=== PATIENT | male | born 2000 | race Caucasian/White ===

== ENCOUNTER 2021-09-03 17:09 | Emergency (ER) | payer OTHER, BC ==
[~2021-09-03] VITALS: Ht 183 cm; Wt 128.0 kg
[~2021-09-03 17:09] MED LIST: CYCL10TA25 PO; NAPR-915 PO
[2021-09-03] MEDS ORDERED: ONDANSETRON 4 MG (ZOFRAN) ORAL DISSOLVE TAB SL STA (18:17)
--- NOTE | 2021-09-03 18:23 | ED Head Injury ---
General Chief Complaint: Trauma-Non Activation Stated Complaint: FALL/HIT BACK OF HEAD Source: patient History of Present Illness Date Seen by Provider: Sep 03, 2021 Time Seen by Provider: 18:12 Initial Comments PT ARRIVES VIA POV STATES HE WAS AT WORK TODAY AT [employer], AND SLIPPED AND FELL BACKWARDS AND HIT THE BACK OF HIS HEAD ON THE METAL FRAME OF A GROCERY CART--NEAR THE BOTTOM OF THE CART. OCCURRED AT 1400 TODAY NO LOSS OF CONSCIOUSNESS AROUND 1600, HE BEGAN TO BECOME NAUSEATED, DIZZY, HAVING A GENERALIZED HEADACHE AND INCREASED PAIN IN BACK OF HEAD AT SITE OF INJURY FEELS "DAZED" BACK OF NECK FEELS SORE NO VISION CHANGES NO PARESTHESIAS OR MOTOR DEFICITS NO OTHER INJURIES FROM THE INCIDENT PT HAS NOT TAKEN ANYTHING FOR PAIN PCP: DR. STEINBERG Allergies and Home Medications Allergies Coded Allergies: No Known Allergies (Verified Allergy, Unknown, 09/06/06) Patient Home Medication List Home Medication List Reviewed: Yes Cyclobenzaprine HCl (Cyclobenzaprine HCl) 10 Mg Tablet, 10 MG PO Q8H Prescribed by: HEMAL GANNON on 02/03/16 012 Naproxen (Naproxen) 500 Mg Tablet, 500 MG PO BID Prescribed by: HEMAL GANNON on 02/03/16 012 Ondansetron (Ondansetron Odt) 4 Mg Tab.rapdis, 4 MG PO Q4H Prescribed by: HEMAL GANNON on 09/03/21 190 Review of Systems Review of Systems Constitutional: see HPI, dizziness, malaise Eyes: No Symptoms Reported Ears, Nose, Mouth, Throat: no symptoms reported Respiratory: no symptoms reported Cardiovascular: no symptoms reported Gastrointestinal: see HPI, nausea; No vomiting Genitourinary: no symptoms reported Musculoskeletal: see HPI, neck pain Skin: no symptoms reported Psychiatric/Neurological: See HPI, Headache Endocrine: No Symptoms Reported Hematologic/Lymphatic: No Symptoms Reported Past Xgkzejy-Myunmk-Emhmou Hx Patient Social History Tobacco Use?: No Use of E-Cig and/or Vaping dev: No Substance use?: No Alcohol Use?: Yes Alcohol type: Beer Alcohol Frequency: Rarely Pt feels they are or have been: No Immunizations Up To Date Tetanus Booster (TDap): Less than 5yrs PED Vaccines UTD: Yes Influenza Vaccine Up-to-Date: No; Not Current First/Initial COVID19 Vaccinat: 2020 Second COVID19 Vaccination Sixto: 2020 COVID19 Vaccine Irrigation Teacher: DANICA Seasonal Allergies Seasonal Allergies: No Past Medical History Surgery/Hospitalization HX: TONSILS Surgeries: Yes Tonsillectomy Respiratory: No Cardiac: Yes Heart Murmur Neurological: No Reproductive Disorders: No Genitourinary: No Gastrointestinal: No Musculoskeletal: No Endocrine: No HEENT: Yes (S/P TONSILLECTOMY) Tonsilitis Cancer: No Psychosocial: No Integumentary: No Blood Disorders: No Physical Exam Vital Signs Vital Signs - First Documented 09/03/21 18:05 Temp 36.8 Pulse 75 Resp 16 B/P (MAP) 166/84 (111) Capillary Refill : Height, Weight, BMI Height: 6'0" Weight: 250lbs. oz. 113.099771pn; 33.90 BMI Method:Stated General Appearance: WD/WN, no apparent distress, other (FLAT AFFECT) HEENT: PERRL/EOMI, normal ENT inspection, TMs normal, pharynx normal, other (NO EXTERNAL EVIDENCE OF TRAUMA TO HEAD, BUT POSTERIOR SCALP IS TENDER TO PALPATION. ) Neck: other (MILD DIFFUSE POSTERIOR NECK TENDERNESS, BUT FULL ROM) Cardiovascular: regular rate, rhythm, no murmur Respiratory: normal breath sounds Gastrointestinal: soft Back: normal inspection, no CVA tenderness, no vertebral tenderness Extremities: normal range of motion, non-tender, normal inspection, no pedal edema, no calf tenderness, normal capillary refill Psychiatric: alert Crainal Nerves: normal hearing, normal speech, PERRL Coordination/Gait: normal finger to nose, normal gait, negative Romberg's sign Motor/Sensory: no motor deficit, no sensory deficit, no pronator drift Skin: normal color, warm/dry [place] Score Best Eye Response: (4) Open Spontaneously Best Verbal Response: (5) Oriented Best Motor Response: (6) Obeys Commands [place] Total: 15 Progress/Results/Core Measures Results/Orders My Orders Orders - HEMAL GANNON DO Ct Head/Cervical Spine Wo (09/03/21 18:17) Ondansetron Oral Dissolve Tab (Zofran (09/03/21 18:17) Vital Signs/I&O 09/03/21 09/03/21 18:05 19:12 Temp 36.8 36.8 Pulse 75 72 Resp 16 16 B/P (MAP) 166/84 (111) 140/[address] HEAD/CERVICAL SPINE--PER RADIOLOGIST REPORT AT 1859 FINDINGS: CT head: No large acute territorial ischemia, mass, or hemorrhage. No midline shift or mass effect. The ventricles, cortical sulci, and basilar cisterns are patent and unremarkable. The calvarium is intact. Retained secretions are seen in the bilateral maxillary sinuses. The mastoid air cells are clear. CT cervical spine: No acute fracture or dislocation is seen in the cervical spine. No focal osseous lesions. Vertebral body heights are well-maintained. The craniocervical junction is well-maintained. Mild degenerative changes are seen in the cervical spine with disc osteophyte complexes and uncovertebral arthropathy. Soft tissues of the neck are unremarkable. The included lung apices are clear. IMPRESSION: 1. No hemorrhage or focal intra-axial mass. No CT evidence of large acute territorial ischemia. 2. No acute fracture or dislocation in the cervical spine. Reviewed: Reviewed by Me Departure Impression Primary Impression: Minor head injury without loss of consciousness Additional Impression: Cervical myofascial strain Disposition: 01 HOME, SELF-CARE Condition: Stable Departure-Patient Inst. Decision time for Depature: 19:00 Referrals: DOUG STEINBERG DO (PCP/Family) Primary Care Physician Patient Instructions: Cervical Muscle Strain (DC), Minor Head Injury, Adult ED Add. Discharge Instructions: TYLENOL AND MOTRIN NEEDED FOR PAIN FOLLOW UP WITH O[facility]UP[facility]ALTH IN 1-2 DAYS FOR FURTHER CARE--CALL IN THE [facility] TO SCHEDULE APPOINTMENT All discharge instructions reviewed with patient and/or family. Voiced understanding. Scripts Ondansetron (Ondansetron Odt) 4 Mg Tab.rapdis 4 MG PO Q4H for Nausea/Vomiting, #10 TAB Prov: HEMAL GANNON DO 09/03/21 HEMAL GANNON DO Sep 03, 2021 18:23
--- NOTE | 2021-09-03 18:48 | Diagnostic Imaging Report ---
PROCEDURE: CT head and CT cervical spine without contrast. TECHNIQUE: Multiple contiguous axial images were obtained through the brain and cervical spine without the use of intravenous contrast. Sagittal and coronal reformations through the cervical spine were then performed. Auto Exposure Controls were utilized during the CT exam to meet ALARA standards for radiation dose reduction. INDICATION: Trauma. Fall. Head and neck pain. COMPARISON: 02/03/2016. FINDINGS: CT head: No large acute territorial ischemia, mass, or hemorrhage. No midline shift or mass effect. The ventricles, cortical sulci, and basilar cisterns are patent and unremarkable. The calvarium is intact. Retained secretions are seen in the bilateral maxillary sinuses. The mastoid air cells are clear. CT cervical spine: No acute fracture or dislocation is seen in the cervical spine. No focal osseous lesions. Vertebral body heights are well-maintained. The craniocervical junction is well-maintained. Mild degenerative changes are seen in the cervical spine with disc osteophyte complexes and uncovertebral arthropathy. Soft tissues of the neck are unremarkable. The included lung apices are clear. IMPRESSION: 1. No hemorrhage or focal intra-axial mass. No CT evidence of large acute territorial ischemia. 2. No acute fracture or dislocation in the cervical spine. Dictated by: Dictated on workstation # [id number]
[2021-09-03] MEDS ORDERED: ONDA4TAB11 PO (19:02)
[2021-09-03 19:12] VITALS: BP 140/80
== END 2021-09-03 19:13 | disposition home or self-care (01) ==
LOC: EDUNIT# 17:09 → ER 17:12
DX: S09.90XA Unspecified injury of head, initial encounter (principal); S16.1XXA Strain of muscle, fascia and tendon at neck level, initial encounter; W01.198A Fall on same level from slipping, tripping and stumbling with subsequent striking against other object, initial encounter; Y92.512 Supermarket, store or market as the place of occurrence of the external cause
CPT/HCPCS: 70450; 72125

== ENCOUNTER → 2021-11-19 | Outpatient (CLI) | payer OTHER, BC ==
[~2021-11-19] MED LIST changes: +ONDA4TAB11 PO
--- NOTE | 2021-11-19 17:32 | Diagnostic Imaging Report ---
EXAMINATION: Right ribs radiograph EXAM DATE: 11/19/2021 4:31 PM COMPARISON: None available. HISTORY: Right rib pain TECHNIQUE: 3 views FINDINGS: There is no acute fracture, dislocation, or destructive osseous process. The joint spaces are normal. The soft tissues are normal. IMPRESSION: 1. No acute osseous abnormality. Dictated by: Dictated on workstation # [id number]
== END ==
LOC: RAD 15:56
PROVIDERS: ATTEND Nurse Practitioner Family
DX: R07.81 Pleurodynia (principal); W01.0XXA Fall on same level from slipping, tripping and stumbling without subsequent striking against object, initial encounter
CPT/HCPCS: 71100